=== PATIENT | male | born 1950 | race Caucasian/White ===

== ENCOUNTER → 2016-07-30 | Day surgery (SDC) | payer OTHER ==
[~2016-07-30] MED LIST: ADVIL PM; ADVIL PM CAPLE1 EACH PO; ALDOMET250 MG PO; ATENOLOL PO; BACTRIM DS TABL1 TAB PO; CARDIZEM CD PO; CARDIZEM PO; CARDIZEM SR PO; CIPRO PO; CLEOCIN PO; DIAZEPAM PO; DIAZEPAM10 MG PO; DILTIAZEM 24HR120 MG PO; DILTIAZEM 24HR180 MG PO; DILTIAZEM ER60 MG PO; DILTIAZEM ER90 MG PO; FLAGYL PO; FLAGYL250 M1 PO; FLOMAX0.4 MG PO; GABAPENTIN800 MG PO; GLIPIZIDE PO; GLUCOTROL PO; HYDRALAZINE HC100 MG PO; HYDRALAZINE HCL50 MG PO; INDOCIN SR75 MG PO; INDOMETHACIN75 MG PO; K-DUR10 MEQ PO; KCL PO; KEFLEX500 MG PO; LAMISIL PO; LISINOPRIL PO; LISINOPRIL20 MG PO; LORTAB 5/500 TA1 TA1 PO; LORTAB 5/500 TA1 TA2 PO; LORTAB 7.5-5001 TAB PO; LOSARTAN POTASS50 MG PO; MEDI-MECLIZINE25 M1 PO; MEDROL PO; METRONIDAZOLE PO; MOBIC PO; NEURONTIN300 MG PO; OMEPRAZOLE20 M1 PO; PRILOSEC PO; PRILOSEC20 M1 PO; PRINIVIL20 M1 PO; RENVELA800 MG; SANDOZ PO; SOD BICARBONATE PO; TRAMADOL HCL50 M1 PO; TRIAM/HCTZ; TRIAMTERENE-HCT1 TA8 PO; ULTRAM PO; VASERETIC 5-12.1 TAB PO; VICODIN 5/500 T1 TAB PO; VITAMIN D 22000 UNIT PO; ZYLOPRIM100 MG PO; [UNRECOGNIZED DRUG - REMARK]
--- NOTE | ~2016-07-30 | OR ---
Unit #: [id number] #: [id number] Patient: THEODORE KOCH [id number] [address] [place], [place] [address] [id number] O MR#: [id number] NAME: THEODORE KOCH ROOM: Date of Procedure: 07/30/2016 Admission Date: 07/30/2016 Surgeon: Alfonzo Jesus M.D. : 1950 Attending Physician: Alfonzo Jesus M.D. Primary Care Physician: Chong Lugo M.D. OPERATIVE REPORT PRIMARY CARE PHYSICIAN Chong Lugo M.D. PREOPERATIVE DIAGNOSES The patient is on a renal transplant awaiting list. He has a history of Crohn disease, status post resection. He does mention intermittent history of abdominal pain after eating. Colonoscopy was done to look for any recurrent Crohn's. PROCEDURES PERFORMED Colonoscopy and biopsies. POSTOPERATIVE DIAGNOSES 1. The patient had some perianal skin tags. 2. The ileocolonic anastomosis was nearly impossible to visualize as it was completely closed; however, this could be due to spasm rather than actual stricturing. Appropriate biopsies were obtained from the anastomosis. The examination was otherwise normal. There being no polyps, diverticula, or hemorrhoids. RECOMMENDATIONS 1. Follow up the results of biopsies. 2. The patient will also be scheduled to have a small bowel follow-through as an outpatient. SEDATION USED MAC. DESCRIPTION OF PROCEDURE Following detailed explanation of the potential risks and complications of a colonoscopy, namely perforation, bleeding, and complications related to sedation, the patient was brought to GI lab and laid in the left lateral decubitus position. A digital rectal examination was performed which was normal. Lubricated tip of the Olympus video colonoscope was inserted through the anus and advanced under direct vision. The scope was advanced past rectosigmoid into descending colon. No diverticula were noticed in this area. The scope tip was then navigated all the way up to cecum with visualization of the ileocecal valve and the appendiceal orifice. The patient had an end-to-side ileocolonic anastomosis just above the ileocecal valve. This could be certain, because of presence of air bubbles bubbling through the anastomotic site; however, actual intubation of the anastomosis was impossible due to the nature of the anatomy. Successive segments of the colonic mucosa were examined upon withdrawal Unit #: [id number] #: [id number] Patient: THEODORE KOCH and appeared unremarkable. There being no polyps, mass lesions, AVMs, or diverticula. The patient did not have any hemorrhoids at anal verge. The scope was then withdrawn and the patient returned to the recovery area. He tolerated the procedure without any postprocedure complications. Dictated by... Joyce Rojas/alonso TD: 07/30/2016 22:21 JOB #: [id number] CC: . OPERATIVE REPORT X Alfonzo Jesus MD PROCEDURE OPERATIVE NOTE
== END | disposition home or self-care (01) ==
LOC: COPS 08:11
DX: K63.89 Other specified diseases of intestine (principal); K64.4 Residual hemorrhoidal skin tags; I25.2 Old myocardial infarction; E11.22 Type 2 diabetes mellitus with diabetic chronic kidney disease; N18.6 End stage renal disease; Z88.2 Allergy status to sulfonamides; Z88.8 Allergy status to other drugs, medicaments and biological substances; Z99.2 Dependence on renal dialysis; Z79.899 Other long term (current) drug therapy; Z90.49 Acquired absence of other specified parts of digestive tract; Z98.890 Other specified postprocedural states
CPT/HCPCS: 82947; 88305

== ENCOUNTER → 2016-08-03 | Outpatient (CLI) | payer OTHER ==
--- NOTE | ~2016-08-03 | CR236 ---
[facility] A Service of [facility] & [facility] RADIOLOGY TEXT RESULTS PATIENT: THEODORE KOCH LOCATION: [facility] : 52 UNIT #: [id number] AGE: [address]: Alfonzo Jesus MD SEX: M ORDER DR: [id number] [facility] [address] [place], [place] [address] [id number] O MR#: [id number] Acc #: [id number] NAME: THEODORE KOCH : 1950 SEX: M STUDY DATE/TIME: 08/03/2016 11:51 UNIT: [facility] ROOM: STUDY DESCRIPTION: CR Small Bowel Sbft W Films Attending Physician: Alfonzo Jesus M.D. Referring Physician: Alfonzo Jesus M.D. Ordering Physician: Alfonzo Jesus M.D. Primary Care Physician: Chong Lugo M.D. MEDICAL IMAGING REPORT This report is preliminary unless electronic signature is present EXAM Small bowel follow-through, 08/03/2016 INDICATION 65-year-old male with Crohn disease: History of Crohn disease and bowel resection. Anastomotic stricture. The fluoro time was 0.5 minutes. 9 images were taken. FINDINGS The patient only tolerated about one-third of the barium and therefore the study is limited. The barium did traverse the small bowel and no into the colon without evidence of obstruction. The loops are nondilated and there is no fold thickening. IMPRESSION No evidence of bowel obstruction. Dictated by... Augustus Logan M.D. THIS IS AN ELECTRONICALLY VERIFIED REPORT Augustus Logan M.D. at 08/04/2016 11:31 AM GIOVANNI/marianela TD: 08/04/2016 01:22 JOB #: [id number] MEDICAL IMAGING REPORT Page 1 of 1 COPY
== END | disposition home or self-care (01) ==
LOC: CRAD 07:57
DX: K63.89 Other specified diseases of intestine (principal)
CPT/HCPCS: 74250

== ENCOUNTER → 2016-11-04 | Outpatient (CLI) | payer OTHER | END | disposition home or self-care (01) | LOC: SLAB 11:31 | DX: Z01.812 Encounter for preprocedural laboratory examination (principal); N18.6 End stage renal disease | CPT/HCPCS: 36415; 86704; 87517 ==